=== PATIENT | female | born 1995 | race Caucasian/White ===

== ENCOUNTER 2018-08-30 12:54 | Day surgery (SDC) | payer OTHER ==
[2018-08-29 15:01] VITALS: BMI 21.0
[~2018-08-30] VITALS: Ht 167.6 cm; Wt 64.2 kg
[2018-08-30] VITALS (14 sets, daily range): BP systolic 118–137; BP diastolic 73–90; PULSE 72–84; RESP 10–16; Ht 167.6 cm; Wt 64.2 kg
[2018-08-30] MEDS ORDERED: LEVO50TA7 PO (13:17)
[2018-08-30] MEDS ORDERED: FLUT9.9S NASAL (13:19)
[2018-08-30] MEDS ORDERED: LISD20CA3 PO (13:19)
[2018-08-30] MEDS ORDERED: LACTATED RINGER'S 1,000 ML IV SCH (14:30)
--- NOTE | 2018-08-30 15:19 | HPN ---
Date/Time of Note Date/Time of Note DATE: 08/30/18 TIME: 15:19 Interval H&P Admission Note Pt. seen H&P reviewed: No system changes HERO HOLT MD Aug 30, 2018 15:19
[2018-08-30] MEDS ORDERED: LIDOCAINE 1%/EPI (1:100,000) (MDV) 20 ML ONE (15:22)
[2018-08-30] MEDS ORDERED: OXYMETAZOLINE 0.05% 15 ML NAS SPRAY NASAL ONE (15:22)
--- NOTE | 2018-08-30 15:32 | PREAC ---
Date/Time of Note Date/Time of Note DATE: 08/30/18 TIME: 15:31 Anesthesia Eval and Record Evaluation Time Pre-Procedure Interview DATE: 08/30/18 TIME: 15:31 Age 22 Sex female NPO: 8 hrs Preoperative diagnosis TURBINATE HYPERTROPHY Planned procedure INFERIOR TURBINATE REDUCTION Past Medical History Past Medical History: Includes Endo: Hypothyroid (SHERINE THYROIDITIS) Surgery & Anesthesia Issues No known issue Meds Anticoagulation: No Beta Solange within 24 hr: No Reason Beta Solange not given: Pt. not on B-Solange Reported Medications Fluticasone Propionate (Flonase Allergy Relief) 9.9 Ml [place].susp, 1 SPRAY NASAL DAILY, #1 BOTTLE TO EACH NOSTRIL 08/30/18 Lisdexamfetamine Dimesylate (Vyvanse) 20 Mg Capsule, 20 MG PO DAILY PRN for ADHD 08/30/18 Levothyroxine Sodium* (Levothyroxine Sodium*) 50 Mcg Tablet, 50 MCG PO QAM 08/30/18 Current Medications Lactated Ringer's 1,000 ml @ 30 mls/hr Q24H IV ; Start 08/30/18 at 14:30 Meds reviewed: Yes Allergies Coded Allergies: No Known Allergy (Unverified , 08/30/18) Allergies Reviewed: Yes Labs/Studies Labs Reviewed: Reviewed by anesthesiologist test: Negative Pre-procedure Exam Airway: Adequate mouth opening, Adequate thyromental dist Mallampati: Mallampati II Teeth: Normal Lung: Normal Heart: Normal ASA Physical Status ASA physical status: 2 Emergency: None Planned Anesthetic General/MAC: ETT Planned Pain Management Parenteral pain med Pre-operative Attestations Prior to commencing anesthesia and surgery, the patient was re-evaluated, there was verification of: *The patient's identity *The results of appropriate recent lab work and preoperative vital signs *The above evaluation not changing prior to induction *Anesthetic plan, risk benefits, alternative and complications discussed with patient/family; questions answered; patient/family understands, accepts and wishes to proceed. Johnathan Machuca M.D. Aug 30, 2018 15:32
[2018-08-30] MEDS ORDERED: ROCURONIUM 50 MG INJ ONE (15:35)
[2018-08-30] MEDS ORDERED: CEFAZOLIN 1 GM INJ ONE (15:35)
[2018-08-30] MEDS ORDERED: GLYCOPYRROLATE 0.4 MG INJ ONE (15:35)
[2018-08-30] MEDS ORDERED: PROPOFOL 20 ML ONE (15:35)
[2018-08-30] MEDS ORDERED: ONDANSETRON 4 MG INJ ONE (15:36)
[2018-08-30] MEDS ORDERED: FENTAnyl 50 MCG/ML VIAL ONE ×2 (15:36→16:07)
[2018-08-30] MEDS ORDERED: DEXAMETHASONE 4 MG/ML 5 ML INJ ONE (15:36)
[2018-08-30] MEDS ORDERED: MIDAZOLAM 1 MG/ML 2 ML INJ ONE (15:36)
[2018-08-30] MEDS ORDERED: EPHEDrine SULFATE 50 MG/5 ML SYG IV PRN (16:00)
[2018-08-30] MEDS ORDERED: MEPERIDINE 25 MG INJ IV PRN (16:00)
[2018-08-30] MEDS ORDERED: hydrALAzine 20 MG INJ IV PRN (16:00)
[2018-08-30] MEDS ORDERED: HYDROmorphONE 1 MG/5 ML IV SYRINGE IV PRN ×2 (16:00)
[2018-08-30] MEDS ORDERED: TRIMETHOBENZAMIDE 100 MG/ML VIAL IM PRN (16:00)
[2018-08-30] MEDS ORDERED: FENTAnyl 50 MCG/ML VIAL IV PRN ×3 (16:00)
[2018-08-30] MEDS ORDERED: MIDAZOLAM 1 MG/ML 2 ML INJ IV PRN (16:00)
[2018-08-30] MEDS ORDERED: IPRATROPIUM (NEB) 0.5 MG/2.5 ML AMP HHN PRN (16:00)
[2018-08-30] MEDS ORDERED: ONDANSETRON 4 MG INJ IV PRN (16:00)
[2018-08-30] MEDS ORDERED: LABETALOL HCL 20MG INJ IV PRN (16:00)
[2018-08-30] MEDS ORDERED: DIPHENHYDRAMINE 50 MG INJ IV PRN (16:00)
[2018-08-30] MEDS ORDERED: ALBUTEROL 0.083% (NEB) 2.5 MG/3 ML AMP HHN PRN (16:00)
[2018-08-30] MEDS ORDERED: OXYCODONE/ACETAMINOPHEN (5/325) TAB PO PRN ×2 (16:00)
[2018-08-30] MEDS: HYDROmorphONE 1 MG/5 ML IV SYRINGE IV PRN ×3 (16:43→17:20)
--- NOTE | 2018-08-30 17:14 | OPR ---
Date/Time of Note Date/Time of Note DATE: 08/30/18 TIME: 17:08 Operative Report Preoperative Diagnosis 1. Inferior turbinate hypertrophy. 2. Nasal airway obstruction. 3. History of prior septoplasty x2. Postoperative Diagnosis Same. Operation/Procedure Performed 1. Bilateral submucous reduction of inferior turbinate. Surgeon see signature line Cardiac Tech None. Anesthesia Type: general Estimated Blood Loss: minimal Transfusion none Specimen None. Grafts/Implants none Complications none Procedure Description OPERATIVE REPORT OTOLARYNGOLOGY / HEAD AND NECK SURGERY ATTENDING SURGEON: Jaciel Reynoso M.D., M.H.S. ANESTHESIOLOGIST: Dr. Machuca. PREOPERATIVE DIAGNOSIS: 1. Inferior turbinate hypertrophy, bilateral. 2. Nasal airway obstruction. POSTOPERATIVE DIAGNOSIS: Same. PROCEDURE: 1. Bilateral submucous reduction of inferior turbinates. ANESTHESIA: General. INDICATIONS: This is a 22-year-old female with a history of nasal airway obstruction that has been refractory to medical management. She has had prior septoplasty, twice. Preoperative evaluation demonstrated bilateral inferior turbinate hypertrophy. I discussed with the patient the risks, benefits, rationale, and alternatives to surgery, including, but not limited to, risks of failure to alleviate symptoms, worsening of breathing, synechiae, bleeding, infection, scar, pain, numbness, change of smell or taste, empty nose syndrome, need for further treatment, and reactions to general anesthesia that could even include . The patient elected to proceed. FINDINGS: 1. Marked hypertrophy of the inferior turbinate, bilaterally. DESCRIPTION OF PROCEDURE: The patient was identified in the preoperative holding area and the informed consent was confirmed. The patient was transferred to the operating room and positioned on the operating table with all pressure points padded. A time-out was performed. The patient was orally intubated by the anesthesiologist without difficulty. The eyes were protected by the anesthesiologist. The patient was prepped and draped in the usual sterile fashion. 1% lidocaine with 1:100,000 epinephrine was injected into the submucoperiosteal plane of each inferior turbinate. A stab incision was made at the head of each inferior turbinate with a #15 blade. The plane was tunneled posteriorly with a ruthann elevator on the left side. The [employer] microdebrider with the turbinate blade was used to resect the turbinate tissue in a submucosal manner. Bony fragments from the turbinate head were removed with a mosquito forceps. The bipolar cautery was introduced, and was activated while it was slowly withdrawn from the turbinate, with hemostasis of the turbinate head ensured. The ruthann and butter knife were used to in-fracture and then out-fracture the inferior turbinate. This was repeated identically on the right side. Nasopore was positioned in the nasal cavity bilaterally to prevent postoperative bleeding or adhesions. The patient was thereafter returned to the care of the anesthesiologist and ultimately extubated without complications. All instrument and sponge counts were correct. MEDICATIONS: Ancef, Decadron. DVT PROPHYLAXIS: SCDs. ESTIMATED BLOOD LOSS: Minimal. SPECIMENS: None. COMPLICATIONS: None. DISPOSITION: The patient will be discharged to home. JACIEL REYNOSO MD Aug 30, 2018 17:14
--- NOTE | 2018-08-30 18:23 | PAC ---
Date/Time of Note Date/Time of Note DATE: 08/30/18 TIME: 18:22 Post-Anesthesia Notes Post-Anesthesia Note Last documented vital signs BP;130/65 TEMP:98.4 RR;14 Activity: WNL Respiratory function: WNL Cardiovascular function: WNL Mental status: Baseline Pain reasonably controlled: Yes Hydration appropriate: Yes Nausea/Vomiting absent: Yes Johnathan Machuca M.D. Aug 30, 2018 18:23
== END 2018-08-30 18:30 | disposition home or self-care (01) ==
LOC: SDS 12:54
PROVIDERS: ATTEND Otolaryngology
DX: J34.3 Hypertrophy of nasal turbinates (principal); J34.89 Other specified disorders of nose and nasal sinuses; E03.9 Hypothyroidism, unspecified
CPT/HCPCS: 30140; 84703; J0690; J1100; J1170; J2250; J2405; J3010; Z7512; Z7610